=== PATIENT | male | born 1990 | race Two or more races ===

== ENCOUNTER 2017-04-01 16:51 | Emergency (ER) | payer BC ==
[~2017-04-01] VITALS: Ht 167.6 cm; Wt 68.0 kg
[2017-04-01] MEDS ORDERED: TAMIFLU75 MG ORAL (17:29)
[2017-04-01 17:42] VITALS: BP 130/68
--- NOTE | 2017-04-01 19:15 | Emergency Room Report ---
History of Present Illness General Chief Complaint: Flu Like Symptoms Source: Patient Present Illness HPI 27-year-old male presents to ED for evaluation. Patient states for last 2 days he's been having a cough and bodyaches and fever. Temp is 101 in triage. Cough is nonproductive. Pain is dull, 8/10, nonradiating. Patient did not receive a flu vaccination this year. Denies nausea or vomiting. Denies ear ache or sore throat. No other aggravating or relieving factors. Denies any other associated symptoms Allergies: Coded Allergies: No Known Allergies (Unverified , 04/01/17) Patient History Past Medical History: none Past Surgical History: none Pertinent Family History: none Social History: Denies: smoking, alcohol use, drug use Immunizations: UTD Reviewed Nursing Documentation: PMH: Agreed, PSxH: Agreed Nursing Documentation-PMH Past Medical History: No Stated History Review of Systems All Other Systems: negative except mentioned in HPI Physical Exam Vital Signs Date Time Temp Pulse Resp B/P (MAP) Pulse Ox O2 Delivery O2 Flow Rate FiO2 04/01/17 17:10 101.1 120 18 116/82 95 Room Air Sp02 EP Interpretation: reviewed, normal General Appearance: no apparent distress, alert, GCS 15, non-toxic Head: normocephalic, atraumatic Eyes: bilateral eye normal inspection, bilateral eye PERRL ENT: hearing grossly normal, normal pharynx, no angioedema, normal voice Neck: full range of motion, supple/symm/no masses Respiratory: chest non-tender, lungs clear, normal breath sounds, speaking full sentences Cardiovascular #1: regular rate, rhythm, no edema Cardiovascular #2: 2+ carotid (R), 2+ carotid (L), 2+ radial (R), 2+ radial (L) , 2+ dorsalis pedis (R), 2+ dorsalis pedis (L) Gastrointestinal: normal bowel sounds, non tender, soft, non-distended, no guarding, no rebound Rectal: deferred Genitourinary: normal inspection, no CVA tenderness Musculoskeletal: back normal, gait/station normal, normal range of motion, non- tender Neurologic: alert, oriented x3, responsive, motor strength/tone normal, sensory intact, speech normal Psychiatric: judgement/insight normal, memory normal, mood/affect normal, no suicidal/homicidal ideation Reflexes: 3+ bicep (R), 3+ bicep (L), 3+ tricep (R), 3+ tricep (L), 3+ knee (R) , 3+ knee (L) Skin: normal color, no rash, warm/dry, well hydrated Lymphatic: no adenopathy Medical Decision Making Diagnostic Impression: Primary Impression: Influenza-like symptoms ER Course Hospital Course 27-year-old M presents to ED complaining of fever + bodyaches + cough Differential diagnoses include: URI, pharyngitis, otitis media, influenza Clinical course Patient placed on stretcher. After initial history physical exam reveals a young female in no acute distress. Bilateral TM unremarkable, no pharyngeal erythema. Lungs clear. No CVA tenderness. Given tylenol in ED. Clinical findings consistent with influenza. Given that I will treat him with Tamiflu Diagnosis - influenza-like symptoms Stable and discharged home with prescriptions for tamiflu. drink plenty of fluids. Instructed to followup with PMD. Return to ED if symptoms recur or worsen Last Vital Signs Date Time Temp Pulse Resp B/P (MAP) Pulse Ox O2 Delivery O2 Flow Rate FiO2 04/01/17 17:50 98.2 04/01/17 17:42 110 18 130/68 97 Room Air Status: improved Disposition: HOME, SELF-CARE Condition: Stable Scripts Oseltamivir Phosphate (Tamiflu) 75 Mg Capsule 75 MG ORAL TWICE A DAY for 10 Days, CAP Prov: TOI RUCKER M.D. 04/01/17 Departure Forms: Return to Work Return to Work Date: Apr 03, 2017 Work Restrictions: None Patient Instructions: Influenza, Adult, [id number] TOI RUCKER M.D. Apr 01, 2017 19:15
== END 2017-04-01 17:42 | disposition home or self-care (01) ==
LOC: EMR 17:23
DX: J11.1 Influenza due to unidentified influenza virus with other respiratory manifestations (principal)
CPT/HCPCS: 99283